=== PATIENT | female | born 1975 | race Hispanic/Latino ===

== ENCOUNTER → 2024-04-28 | Day surgery (SDC) | payer OTHER ==
[2024-04-21 13:40] LABS: BASOPHILS % 0.7 % (0.0-1.0); EOSINOPHILS # (AUTO) 0.1 (0.0-0.4); EOSINOPHILS % 1.9 % (0.0-6.0); HEMATOCRIT 42.6 % (34.2-44.1); HEMOGLOBIN 13.8 g/dL (12.0-16.0); LYMPHOCYTES # (AUTO) 1.5 (1.0-3.2); LYMPHOCYTES % 25.8 % (18.0-39.1); MEAN CORPUSCULAR HEMOGLOBIN 30.1 pg (28-32); MEAN CORPUSCULAR HGB CONC 32.4 g/dL (31-35); MONOCYTES # (AUTO) 0.5 (0.2-0.8); MONOCYTES % 8.8 % (4.4-11.3); NEUTROPHILS # (AUTO) 3.7 (2.1-6.9); NEUTROPHILS % 62.6 % (38.7-80.0); PLATELET COUNT 237 x10e3/uL (140-360); RED BLOOD COUNT 4.58 x10e6/uL (3.6-5.1); RED CELL DISTRIBUTION WIDTH 12.2 % (11.7-14.4)
[2024-04-21 14:04] LABS: CREATININE, SERUM 0.63 mg/dL (0.57-1.11)
[~2024-04-28] MED LIST: DESLORATADINE5 MG PO; DEXAMETHASONE SOD PHOS INJ 4 MG/ML SDV ONE; EPHEDRINE SULFATE INJ 50 MG/ML VIAL ONE; FENTANYL CITRATE/PF 100MCG/2 ML INJ ONE; GLUCOSAMINE PO; HYDROCODONE/APAP 7.5MG-325MG 1 EA TAB ONE; KETOROLAC TROMETHAMINE 30 MG/ML VIAL ONE; LIDOCAINE HCL 2% LOCAL INJ 5 ML SDV VIAL INJ ONE; MAGNESIUM PO; METFORMIN HCL500 MG PO; MIDAZOLAM HCL 2 MG/2 ML VIAL ONE; MONTELUKAST SOD10 MG PO; ONDANSETRON HCL INJ 2MG/ML 2ML 2 MG/ML VIAL ONE; PAROXETINE HCL20 MG PO; PROPOFOL IV EMULSION 10 MG/ML 20 ML VIAL ONE; ROSUVASTATIN CA10 MG PO; VITAMIN C PO; VITAMIN D3 PO
[2024-04-28] MEDS: LACTATED RINGER'S 1,000 ML ONE (07:27)
[2024-04-28] MEDS: CEFAZOLIN SODIUM 2 GM ONE (07:27)
[2024-04-28 10:12] VITALS: TEMP 97.2
[2024-04-28] MEDS: ONDANSETRON HCL INJ 2MG/ML 2ML 2 MG/ML VIAL ONE (10:53)
[2024-04-28] MEDS: HYDROCODONE/APAP 7.5MG-325MG 1 EA TAB PO ONE (11:17)
[2024-04-28 11:30] VITALS: BP 120/69; PULSE 79; RESP 16; O2SAT 96
[2024-04-28] MEDS: FENTANYL CITRATE/PF 100MCG/2 ML INJ ONE (11:33)
== END | disposition home or self-care (01) ==
LOC: OR 06:31
PROVIDERS: ATTEND Podiatrist Foot Surgery
DX: M20.11 Hallux valgus (acquired), right foot (principal); M20.41 Other hammer toe(s) (acquired), right foot; M77.31 Calcaneal spur, right foot; G57.51 Tarsal tunnel syndrome, right lower limb; G58.8 Other specified mononeuropathies; E78.5 Hyperlipidemia, unspecified; E11.9 Type 2 diabetes mellitus without complications; Z01.810 Encounter for preprocedural cardiovascular examination; Z01.812 Encounter for preprocedural laboratory examination; Z01.818 Encounter for other preprocedural examination; Z79.84 Long term (current) use of oral hypoglycemic drugs; Z79.899 Other long term (current) drug therapy
CPT/HCPCS: 28035; 28119; 28285 ×2; 28296; 36415; 71046; 73620; 80048; 81025; 85025; 93005; C1713 ×2; J1100; J1885; J2003; J2250; J2405; J2704; J3010; J7121